=== PATIENT | male | born 2000 | race African-American/Black ===

== ENCOUNTER 2025-01-23 08:14 | Emergency (ER) | payer MEDICAID, OTHER ==
[~2025-01-23] VITALS: Ht 190.5 cm; Wt 100.0 kg
[2025-01-23 08:35] VITALS: O2SAT 100
[2025-01-23] MEDS ORDERED: VISCOUS LIDOCAINE 2% 15 ML UDC MM PRN (10:30)
[2025-01-23] MEDS: LORAZEPAM 0.5MG TABLET PO ONE (10:53)
[2025-01-23] MEDS: HYDROCODONE/ACETAMINOPHEN 5/325MG TABLET PO ONE (10:53)
[2025-01-23] MEDS ORDERED: CIPR-264 MT (11:53)
[2025-01-23 12:17] LABS: CLARITY URINE CLEAR (CLEAR); COLOR URINE YELLOW (YELLOW); GLUCOSE URINE NEGATIVE (NEGATIVE); KETONES URINE TRACE (NEGATIVE); LEUKOCYTE ESTERASE URINE TRACE (NEGATIVE); NITRITE URINE NEGATIVE (NEGATIVE); OCCULT BLOOD URINE NEGATIVE (NEGATIVE); PH URINE 6.0 (4.5-8.0); PROTEIN URINE NEGATIVE (NEGATIVE); SPECIFIC GRAVITY URINE 1.025 (1.005-1.030); UROBILINOGEN URINE 1.0 E.U./dL (0.2-1.0)
[2025-01-23 12:42] VITALS: BP 130/70; PULSE 94; RESP 16; TEMP 36.9; O2SAT 100
[2025-01-23 12:45] LABS: SQUAMOUS EPITHELIAL CELL URINE RARE /lpf (RARE/1+)
[2025-01-23 12:46] LABS: BACTERIA URINE TRACE; RBC URINE 0-2 /hpf (0-2)
[2025-01-23 12:47] LABS: MUCUS URINE TRACE /lpf (NONE/TRACE)
== END 2025-01-23 12:56 | disposition home or self-care (01) ==
LOC: ER 08:36
DX: R33.9 Retention of urine, unspecified (principal)
CPT/HCPCS: 81003; 87086; 51702; 99284; Z7610